=== PATIENT | female | born 1960 | race Asian ===

== ENCOUNTER 2016-10-01 19:52 | Emergency (ER) | payer OTHER ==
[2016-10-01 19:59] VITALS: O2SAT 100
[2016-10-01] MEDS ORDERED: ONDANSETRON 4 MG/2 ML VIAL ONE (20:05)
[2016-10-01] MEDS ORDERED: HYDROmorphONE/DILAUDID 1 MG/ML SYR ONE (20:05)
[2016-10-01] MEDS ORDERED: NS 1,000 ML IV ONE ×2 (20:14→20:26)
[2016-10-01] MEDS ORDERED: ONDANSETRON 4 MG/2 ML VIAL IVP ONE (20:14)
--- NOTE | 2016-10-01 20:28 | EDPHY ---
H & P Stated Complaint: right abd, flank pain Time Seen by Provider: 10/01/16 20:21 HPI/ROS: CHIEF COMPLAINT: Right-sided abdominal pain HISTORY OF PRESENT ILLNESS: The patient is a 56-year-old female comes to the emergency department complaining of right-sided abdominal pain. It began this morning around 9:00 a.m. suddenly. It radiates to her right flank. It then resolved after about an hour and returned around 6:00 p.m. tonight. She has vomited several times. No pain radiating to her groin. No diarrhea. No fever. No chest pain. No history of surgery. No hematuria or dysuria. She has noticed urinary frequency her. She points to her right middle quadrant as the source of pain. REVIEW OF SYSTEMS: Constitutional: denies: chills, fever, recent illness, recent injury EENTM: denies: blurred vision, double vision, nose congestion Respiratory: denies: cough, shortness of breath Cardiac: denies: chest pain, irregular heart rate, lightheadedness, palpitations Gastrointestinal/Abdominal: See HPI Genitourinary: See HPI Musculoskeletal: denies: joint pain, muscle pain Skin: denies: lesions, rash, jaundice, bruising Neurological: denies: headache, numbness, paresthesia, tingling, dizziness, weakness Hematologic/Lymphatic: denies: blood clots, easy bleeding, easy bruising Immunologic/allergic: denies: HIV/AIDS, transplant EXAM: GENERAL: Well-appearing, well-nourished and in no acute distress. HEAD: Atraumatic, normocephalic. EYES: Pupils equal round and reactive to light, extraocular movements intact, sclera anicteric, conjunctiva are normal. ENT: TMs normal, nares patent, oropharynx clear without exudates. Moist mucous membranes. NECK: Normal range of motion, supple without lymphadenopathy or JVD. LUNGS: Breath sounds clear to auscultation bilaterally and equal. No wheezes rales or rhonchi. HEART: Regular rate and rhythm without murmurs, rubs or gallops. ABDOMEN: Soft, nontender, normoactive bowel sounds. No guarding, no rebound. No masses appreciated. BACK: No CVA tenderness, no spinal tenderness, step-offs or deformities EXTREMITIES: Normal range of motion, no pitting or edema. No clubbing or cyanosis. NEUROLOGICAL: Cranial nerves II through XII grossly intact. Normal speech, normal gait. 5/5 strength, normal movement in all extremities, normal sensation PSYCH: Normal mood, normal affect. SKIN: Warm, dry, normal turgor, no visible rashes or lesions. Source: Patient Exam Limitations: No limitations - Medical/Surgical History Hx Asthma: No Hx Chronic Respiratory Disease: No Hx Diabetes: No Hx Cardiac Disease: No Hx Renal Disease: No Hx Cirrhosis: No Hx Alcoholism: No Hx HIV/AIDS: No Hx Splenectomy or Spleen Trauma: No Other PMH: denies - Family History Significant Family History: No pertinent family hx - Social History Smoking Status: Never smoked Alcohol Use: Sober Drug Use: None Constitutional: Initial Vital Signs Temperature (C) 36.7 C 10/01/16 19:57 Respiratory Rate 10/01/16 19:57 Blood Pressure 152/136 H 10/01/16 19:57 O2 Sat (%) 100 10/01/16 19:57 O2 Delivery Mode Room Air Allergies/Adverse Reactions: No Known Allergies Allergy (Unverified 10/01/16 19:56) Home Medications: Medication Instructions Recorded NO HOME MEDICATIONS 07/30/11 Ondansetron Odt [Zofran Odt 4 mg 4 mg PO Q4 PRN #20 tab 02/28/16 (RX)] Ketorolac Tromethamine [Toradol] 10 mg PO Q6H #16 tab 10/01/16 Tamsulosin HCl [Flomax] 0.4 mg PO DAILY #10 cap 10/01/16 oxyCODONE/APAP 5/325 [Percocet 1 - 2 tab PO Q4H PRN #20 tab 10/01/16 5/325] Medical Decision Making - Diagnostics Imaging: Results: CT scan of the abdomen pelvis was obtained. The results of the study are positive for 3 mm stone at the distal ureter partially into the bladder. The study was read by Dr. Serge Varner. I viewed the images myself on the PACS system. ED Course/Re-evaluation: 9:50 p.m. the patient is feeling completely better. We discussed her CT results. I will treat her with Toradol and Flomax and discharged with pain control and follow-up. She understands and agrees with this plan. She declines further workup or testing at this time. Discussed indications for returning to the emergency department. Additional verbal discharge instructions given. Differential Diagnosis: Partial list of the Differential diagnosis considered include but were not limited to; kidney stone, appendicitis, ovarian cyst and although unlikely based on the history and physical exam, I also considered biliary disease, constipation, peptic ulcer disease. I discussed these differential diagnoses and the plan with the patient as well as the usual and expected course. The patient understands that the diagnosis is provisional and that in medicine we are not always correct and that further workup is often warranted. Usual and customary warnings were given. All of the patient's questions were answered. The patient was instructed to return to the emergency department should the symptoms at all worsen or return, otherwise to followup with the physician as we discussed. - Data Points Laboratory Results: Laboratory Results 10/01/16 20:10 10/01/16 20:10 10/01/16 10/01/16 20:40 20:10 WBC 10.06 H 10^3/uL (3.80-9.50) RBC 4.85 10^6/uL (4.18-5.33) Hgb 15.3 g/dL (12.6-16.3) Hct 44.0 % (38.0-47.0) MCV 90.7 fL (81.5-99.8) MCH 31.5 pg (27.9-34.1) MCHC 34.8 g/dL (32.4-36.7) RDW 12.0 % (11.5-15.2) Plt Count 188 10^3/uL (150-400) MPV 11.0 fL (8.7-11.7) Neut % (Auto) 78.2 H % (39.3-74.2) Lymph % (Auto) 15.8 % (15.0-45.0) [place] % (Auto) 5.4 % (4.5-13.0) Eos % (Auto) 0.0 L % (0.6-7.6) Baso % (Auto) 0.4 % (0.3-1.7) Nucleat RBC Rel Count 0.0 % (0.0-0.2) Absolute Neuts (auto) 7.87 H 10^3/uL (1.70-6.50) Absolute Lymphs (auto) 1.59 10^3/uL (1.00-3.00) Absolute Monos (auto) 0.54 10^3/uL (0.30-0.80) Absolute Eos (auto) 0.00 L 10^3/uL (0.03-0.40) Absolute Basos (auto) 0.04 10^3/uL (0.02-0.10) Absolute Nucleated RBC 0.00 10^3/uL (0-0.01) Immature Gran % 0.2 % (0.0-1.1) Immature Gran # 0.02 10^3/uL (0.00-0.10) Sodium 141 mEq/L (134-144) Potassium 3.9 mEq/L (3.5-5.2) Chloride 107 mEq/L (97-110) Carbon Dioxide 25 mEq/l (22-31) Anion Gap 9 mEq/L (8-16) BUN 14 mg/dL (7-23) Creatinine 0.7 mg/dL (0.6-1.0) Estimated GFR > 60 Glucose 113 H mg/dL (70-100) Calcium 9.1 mg/dL (8.5-10.4) Total Bilirubin 0.7 mg/dL (0.1-1.4) Conjugated Bilirubin 0.3 mg/dL (0.0-0.5) Unconjugated Bilirubin 0.4 mg/dL (0.0-1.1) AST 23 IU/L (14-46) ALT 30 IU/L (9-52) Alkaline Phosphatase 100 IU/L (38-126) Total Protein 7.3 g/dL (6.3-8.2) Albumin 4.1 g/dL (3.5-5.0) Lipase 191.0 IU/L (23-300) Beta HCG, Qual NEGATIVE Urine Color YELLOW Urine Appearance CLEAR Urine pH 7.0 (5.0-7.5) Ur Specific [place] 1.016 (1.002-1.030) Urine Protein NEGATIVE (NEGATIVE) Urine Ketones 1+ H (NEGATIVE) Urine Blood 2+ H (NEGATIVE) Urine Nitrate NEGATIVE (NEGATIVE) Urine Bilirubin NEGATIVE (NEGATIVE) Urine Urobilinogen NEGATIVE EU (0.2-1.0) Ur Leukocyte Esterase NEGATIVE (NEGATIVE) Urine RBC 50-182 H /hpf (0-3) Urine WBC 1-3 /hpf (0-3) Ur Epithelial Cells NONE SEEN /lpf (NONE-1+) Urine Mucus TRACE /lpf (NONE-1+) Ur Culture Indicated? NOT INDICATED (NI) Urine Glucose NEGATIVE (NEGATIVE) Medications Given: Discontinued Medications Hydromorphone HCl (Dilaudid) 0.5 mg IVP EDNOW ONE Stop: 10/01/16 20:27 Last Admin: 10/01/16 20:55 Dose: 0.5 mg Sodium Chloride (Ns) 1,000 mls @ 0 mls/hr IV ONCE ONE PRN Reason: Wide Open Stop: 10/01/16 20:15 Last Admin: 10/01/16 20:14 Dose: 1,000 mls Sodium Chloride (Ns) 1,000 mls @ 0 mls/hr IV ONCE ONE PRN Reason: Wide Open Stop: 10/01/16 20:27 Last Admin: 10/01/16 21:07 Dose: 1,000 mls Ketorolac Tromethamine (Toradol) 30 mg IVP EDNOW ONE Stop: 10/01/16 21:54 Last Admin: 10/01/16 22:03 Dose: 30 mg Ondansetron HCl (Zofran) 4 mg IVP EDNOW ONE Stop: 10/01/16 20:15 Last Admin: 10/01/16 20:18 Dose: 4 mg Tamsulosin HCl (Flomax) 0.4 mg PO EDNOW ONE Stop: 10/01/16 21:54 Last Admin: 10/01/16 22:04 Dose: 0.4 mg Departure - Departure Disposition: Home, Routine, Self-Care Clinical Impression: Kidney stone on right side Condition: Fair Instructions: Kidney Stones (ED) Referrals: Kayley Tyson MD [Primary Care Provider] - As per Instructions Prescriptions: Tamsulosin HCl [Flomax] 0.4 mg PO DAILY #10 cap oxyCODONE/APAP 5/325 [Percocet 5/325] 1 - 2 tab PO Q4H PRN #20 tab PRN Reason: Pain, Severe Ketorolac Tromethamine [Toradol] 10 mg PO Q6H #16 tab
[2016-10-01] MEDS: HYDROmorphONE/DILAUDID 1 MG/ML SYR IVP ONE ×2 (20:31→20:55)
[2016-10-01 20:37] LABS: % IMMATURE GRANULYOCYTES 0.2 % (0.0-1.1); ABSOLUTE IMMATURE GRANULOCYTES 0.02 10^3/uL (0.00-0.10); ADD DIFF? NO; ADD MORPH? NO; ADD SCAN? NO; ATYPICAL LYMPHOCYTE FLAG 0 (0-99); FRAGMENT RBC FLAG 0 (0-99); HEMOGLOBIN 15.3 g/dL (12.6-16.3); LEFT SHIFT FLG 0 (0-99); LIPEMIA HEMOLYSIS FLAG 90 (0-99); MEAN CELL HEMOGLOBIN 31.5 pg (27.9-34.1); MEAN CELL HEMOGLOBIN CONCENTR. 34.8 g/dL (32.4-36.7); MEAN CELL VOLUME 90.7 fL (81.5-99.8); PLATELET CLUMPS FLAG 0 (0-99); PLATELET COUNT 188 10^3/uL (150-400); RED BLOOD CELL COUNT 4.85 10^6/uL (4.18-5.33)
[2016-10-01 20:49] LABS: ALANINE AMINOTRANSFERASE 30 IU/L (9-52); ALBUMIN 4.1 g/dL (3.5-5.0); ALKALINE PHOSPHATASE 100 IU/L (38-126); ANION GAP 9 mEq/L (8-16); ASPARTATE AMINOTRANSFERASE 23 IU/L (14-46); BILIRUBIN,TOTAL 0.7 mg/dL (0.1-1.4); BILIRUBIN-CONJUGATED 0.3 mg/dL (0.0-0.5); BILIRUBIN-UNCONJUGATED 0.4 mg/dL (0.0-1.1); CALCIUM 9.1 mg/dL (8.5-10.4); CARBON DIOXIDE 25 mEq/l (22-31); CHLORIDE 107 mEq/L (97-110); CREATININE 0.7 mg/dL (0.6-1.0); GLOMERULAR FILTRATION RATE > 60; GLUCOSE 113 mg/dL (70-100); POTASSIUM 3.9 mEq/L (3.5-5.2); SODIUM 141 mEq/L (134-144); TOTAL PROTEIN 7.3 g/dL (6.3-8.2)
[2016-10-01 21:12] LABS: COLOR YELLOW; LEUKOCYTE ESTERASE,URINE NEGATIVE (NEGATIVE); NITRITE,URINE NEGATIVE (NEGATIVE)
[2016-10-01 21:14] LABS: MUCUS TRACE /lpf (NONE-1+); RBC,URINE 50-182 /hpf (0-3)
[2016-10-01] MEDS ORDERED: TAMSULOSIN HCL 0.4 MG CAP PO ONE (21:53)
[2016-10-01] MEDS ORDERED: KETOROLAC 30 MG/1 ML SDV IVP ONE (21:53)
--- NOTE | 2016-10-01 21:57 | CT ---
CT Scan of the Urinary Tract (Abdomen and Pelvis Without Contrast) Indication: Right flank pain. Technique: Multidetector helical CT imaging was performed from the kidneys to the urinary bladder wi thout contrast. Dose reduction techniques were utilized. Comparison: None. Findings: A 3-mm calculus in the distal right ureter bulging into the bladder lumen results in modera te right hydronephrosis and hydroureter. No nephrolithiasis. The left kidney and collecting system ar e normal. The urinary bladder is normal. The uterus is normal size. No adnexal mass. No free fluid, lymphadenopathy, or mass. The noncontrast liver, spleen, pancreas, and adrenal glands are normal. Bowel pattern normal. The appendix is normal. Lung bases are clear. Heart size normal. Abdominal aorta is normal caliber with minimal calcified cheli que. Impression: 1. 3-mm distal right ureteral calculus, at the ureterovesical junction, results in moderate right hy dronephrosis. 2. Otherwise, negative CT of the abdomen and pelvis. Comment: The case was discussed with Dr. Pena at 9:45 p.m. on October 01, 2016 . Attention: This CT examination is specifically designed to evaluate patients who are clinically susp ected of having acute obstructive uropathy. This examination does not use radiographic contrast, and as such, provides only a limited evaluation of the abdomen, pelvis, and retroperitoneum. If there is further clinical suspicion for pathological conditions other than obstructive uropathy, a complete CT evaluation of the abdomen and pelvis utilizing intravenous, oral, and rectal contrast should be c onsidered.
[2016-10-01 22:04] VITALS: BP 136/80; PULSE 81; RESP 16; TEMP 97.9
== END 2016-10-01 22:14 | disposition home or self-care (01) ==
DX: N20.0 Calculus of kidney (principal)
CPT/HCPCS: 96374; J1170; J1885; J2405

== ENCOUNTER → 2016-11-23 | Outpatient (CLI) | payer OTHER | LOC: BMCIMAGING 10:58 | DX: Z12.31 Encounter for screening mammogram for malignant neoplasm of breast (principal) | CPT/HCPCS: G0202 ==